=== PATIENT | female | born 1955 | race Caucasian/White ===

== ENCOUNTER 2019-07-16 12:03 | Outpatient (CLI) | payer MEDICARE, SELFPAY ==
--- NOTE | 2019-07-16 12:09 | ECHO_ITS ---
Patient Info Name: Daphney Shah Age: 64 years : 1955 Gender: Female Ht: 63 in Wt: 188 lbs BSA: 1.98 m2 HR: 60 bpm BP: 113 / 59 mmHg Technical Quality: Good Exam Date: 07/16/2019 12:39 PM Exam Location: [facility], [place] Patient Status: Outpatient Admit Date: 07/16/2019 Staff Ordering Physician: Jeferson Deng DO Structural Ironworker: Marv Vegas RDCS, RT Attending Provider: Jeferson Deng DO Referring Physician: Ish MIRANDA; Exam Type: CA echo doppler color flow Study Info Indications R06.02 - Shortness of breath Complete two-dimensional, color flow and Doppler transthoracic echocardiogram is performed. Summary 1. Left ventricular chamber dimension is normal. 2. Left ventricular systolic function is normal, estimated at 55-60%. 3. There is mildly increased left ventricular wall thickness. 4. The left ventricular diastolic function is abnormal. 5. E/e' 16 is elevated. 6. Global longitudinal strain is normal at -22.9%. 7. Left atrial chamber dimension is mildly enlarged. 8. Moderate mitral annular calcification. 9. There is trace mitral valve regurgitation. Left Ventricle E/e' 16 is elevated. Global longitudinal strain is normal at -22.9%. Left ventricular chamber dimension is normal. Left ventricular systolic function is normal, estimated at 55-60%. There is mildly increased left ventricular wall thickness. The left ventricular diastolic function is abnormal. Right Ventricle Right ventricular chamber dimension is normal. Right ventricular systolic function is normal. Left Atria Left atrial chamber dimension is mildly enlarged. Right Atria Right atrial chamber dimension is normal. Aortic Valve The aortic valve is trileaflet. There is no aortic valve stenosis. There is no aortic valve regurgitation. Pulmonic Valve There is no pulmonic regurgitation. Mitral Valve Moderate mitral annular calcification. There is no mitral valve stenosis. There is trace mitral valve regurgitation. Tricuspid Valve There is no tricuspid valve regurgitation. Pericardium/Pleural There is no pericardial effusion. Inferior Vena Cava Normal inferior vena cava with >50% collapse upon inspiration consistent with normal right atrial pressure, 5 mmHg. Aorta The aortic root size at the sinus of Valsalva is normal. Left Ventricular Outflow Tract Name Value Normal LVOT 2D LVOT Diameter 1.9 cm LVOT Doppler LVOT Peak Velocity 102 cm/s LVOT Peak Gradient 4 mmHg LVOT Mean Gradient 2 mmHg LVOT VTI 25 cm LVOT VTI/AV VTI Ratio 0.6 LVOT Stroke Volume 70 ml Pulmonic Valve Name Value Normal PV Doppler PV Peak Velocity 107 cm/s PV Peak Gradient
== END 2019-07-16 12:04 | disposition home or self-care (01) ==
LOC: CHSIMG 12:04
PROVIDERS: PCP Family Medicine; Visit Provider Internal Medicine Cardiovascular Disease
DX: R06.09 Other forms of dyspnea (principal)
CPT/HCPCS: 93306

== ENCOUNTER 2019-07-29 08:52 | Outpatient (CLI) | payer MEDICARE, SELFPAY ==
[2019-07-29 09:32] LABS: Cholesterol 220 mg/dL (0-200); HDL Direct 58 mg/dL (40-60); LDL Cholesterol Calculated 139 mg/dL (<130); Triglycerides 114 mg/dL (0-150)
== END 2019-07-29 08:53 | disposition home or self-care (01) ==
LOC: CHSLAB 08:55
PROVIDERS: PCP Family Medicine; Visit Provider Internal Medicine Cardiovascular Disease
DX: E78.5 Hyperlipidemia, unspecified (principal)
CPT/HCPCS: 36415; 80061

== ENCOUNTER 2019-09-08 12:19 | Emergency (ER) | payer MEDICARE, SELFPAY ==
--- NOTE | ~2019-09-08 | CT_ITS ---
EXAMINATION: CT facial bones wo con DATE: 09/08/2019 13:44 INDICATION: Left maxillary and frontal contusion TECHNIQUE: Computed tomography (CT) of the maxillofacial region was performed without intravenous con trast. The dose-length product was 529.67 mGy-cm. Automated exposure control and iterative reconstruc tion technique were employed. COMPARISON: None FINDINGS: MAXILLOFACIAL CT: There is a large left frontal scalp hematoma. No underlying skull fracture is identified. No acute fr acture or traumatic malalignment. Temporal mandibular joints are symmetric. No mandibular fracture. T here are multiple dental caries. There is left mastoid effusion. Paranasal sinuses within normal limi ts. No evidence for orbital blowout fracture. Lamina papyracea is intact bilaterally. Leftward nasal septal deviation. Right-sided binta bullosa. There are degenerative changes of the cervical spine. IMPRESSION: 1. No acute maxillofacial fracture. Reviewed, dictated and finalized at location A.
--- NOTE | ~2019-09-08 | CT_ITS ---
EXAMINATION: CT brain wo con DATE: 09/08/2019 13:44 INDICATION: Status post fall. Frontal abrasions. TECHNIQUE: Computed tomography (CT) of the head was performed without intravenous contrast. The dose- length product was 529.67 mGy-cm. Automated exposure control and iterative reconstruction technique w ere employed. COMPARISON: None FINDINGS: There is a large left frontal scalp hematoma. No acute intracranial hemorrhage, infarction, mass or mass effect. No ventriculomegaly or midline shift. Basilar cisterns are patent. No underlyin g depressed skull fractures. There is left mastoid effusion. IMPRESSION: 1. No acute intracranial abnormality. 2: Large left frontal scalp hematoma. No underlying skull fracture. Reviewed, dictated and finalized at location A.
[2019-09-08 12:56] VITALS: BP 107/68; PULSE 69; RESP 18; TEMP 36.7; O2SAT 98
--- NOTE | 2019-09-08 13:13 | ED.FALL ---
HPI - Fall General Chief Complaint: Fall Stated Complaint: hit left side of head Source: patient Mode of arrival: ambulatory Limitations: no limitations History of Present Illness HPI Narrative: 64-year-old tripped over a parking block falling onto her left side of her face. She had no loss of conscious, nausea or vomiting afterwards. This occurred at approximately noon. She rates the pain is 3/10 dull and aching She denies neck pain shoulder elbow hip or knee. Unknown last tetanus Related Data Home Medications Medication Instructions Recorded Confirmed citalopram 40 mg tablet 20 mg PO DAILY 07/10/19 09/08/19 famotidine 40 mg tablet 40 mg PO DAILY 07/10/19 09/08/19 Allergies Allergy/AdvReac Type Severity Reaction Status Date / Time No Known Allergies Allergy Verified 07/10/19 10:59 Review of Systems Constitutional: Comments: Has been feeling healthy Cardiovascular: Comments: no chest pain Respiratory: Comments: no shortness of breath Gastrointestinal: Gastrointestinal: Reports no additional gastrointestinal complaints Musculoskeletal: Musculoskeletal: Reports no additional musculoskeletal complaints Neurologic: Denies dizziness and Denies memory loss [facility] Past Medical History Medical History Arthritis Hx of migraine headaches Family History Family History Father Past heart attack Parkinsons disease Mother Pacemaker Social History Social History (Updated 09/09/19 @ 05:36 by Butch Painter MD) Social History: She and her are raising 5 young children. Smoking status: Former smoker Alcohol intake: never Exam Narrative: Exam Narrative: Wearing glasses. Left lenses is scratched. Const: General: no acute distress HENMT: Other: Large hematoma of left forehead with abrasion; tender. Abrasions over left zygomatic process with minor tenderness. Slight ecchymosis left proximal medial nose. No eyelid swelling. No subconjunctival hemorrhage.. Fully opens her mouth without pain. No TMJ tenderness. Upper incisors are stable. Eyes: Pupils: Equal, round and reactive pupils present EOM: EOMs intact bilaterally Other: Sees objects normally with glasses Neck: Other: No cervical paraspinal or spinous process tenderness. No pain with cervical flexion. Neuro: General: patient oriented x3 and moves all extremities Extrem: Other: No tenderness or abrasion over the left elbow wrist hip knee or ankle. Psych: Mental Status: mental status grossly normal Course Course Emergency Course: No additional symptoms Vital Signs Vital signs: Vital Signs Temperature 36.7 C 09/08/19 12:56 Pulse Rate 69 09/08/19 12:56 Respiratory Rate 18 09/08/19 12:56 Blood Pressure 107/68 09/08/19 12:56 Pulse Oximetry 98 09/08/19 12:56 Temperature 36.7 C 09/08/19 12:56 Pulse Rate 69 09/08/19 12:56 Respiratory Rate 13 09/08/19 14:48 Blood Pressure 107/68 09/08/19 12:56 Pulse Oximetry 98 09/08/19 12:56 MDM - Fall Differential Diagnosis Differential diagnosis: Likely other (fracture of facial bones/skull; intracranial hemorrhage. ) Imaging Data Radiologist's impression: CT facial bones and brain are negative except for left forehead hematoma Discharge Plan Discharge Clinical Impression: Abrasion of face, Contusion of face Patient Disposition: Home, Self-Care Condition: Stable Instructions: Head Injury (ED), Abrasion (ED) Additional Instructions: Return if worsening headache or with trouble concentrating, trouble with balance or any other abnormalities. Prescriptions: No Action famotidine 40 mg tablet 40 mg PO DAILY RF: 0 citalopram 40 mg tablet 20 mg PO DAILY RF: 0 Follow-up/Referrals: Javier Rosario MD [Primary Care Provider] - Time of Disposition: 14: Discharge Date/Time: 09/08/19 14:50
[2019-09-08] MEDS: TETANUS,DIPHTHERIA,AC PERTUSSIS ADULT 0.5 ML (ADACEL) IM (14:35)
[2019-09-08 14:48] VITALS: RESP 13
== END 2019-09-08 14:50 | disposition home or self-care (01) ==
PROVIDERS: Emergency Provider Family Medicine; PCP Family Medicine
DX: S00.81XA Abrasion of other part of head, initial encounter (principal); S00.83XA Contusion of other part of head, initial encounter; Z87.891 Personal history of nicotine dependence; W01.0XXA Fall on same level from slipping, tripping and stumbling without subsequent striking against object, initial encounter
CPT/HCPCS: 70450; 70486; 90471; 90715; 99282; 99284

== ENCOUNTER 2019-09-16 12:54 | Outpatient (CLI) | payer MEDICARE, SELFPAY ==
--- NOTE | ~2019-09-16 | XR_ITS ---
XR finger 1st LT min 2V DATE: 09/16/2019 13:23 INDICATION: First digit pain near interphalangeal joint following injury from fall last week TECHNIQUE: 3 views COMPARISON: 06/14/2008 left hand FINDINGS: There is severe osteoarthritis at the first carpometacarpal joint. There is osteoarthritis at the interphalangeal joint of the first digit. No fracture or dislocation, periosteal reaction or bone destruction is detected. IMPRESSION: No fracture or dislocation Osteoarthritic changes at the first carpometacarpal and interphalangeal joints Reviewed, dictated and finalized at location B.
== END 2019-09-16 12:55 | disposition home or self-care (01) ==
LOC: CHSIMG 12:57
PROVIDERS: PCP Family Medicine; Visit Provider Family Medicine
DX: M25.542 Pain in joints of left hand (principal)
CPT/HCPCS: 73140

== ENCOUNTER 2019-10-24 09:53 | Outpatient (CLI) | payer MEDICARE, SELFPAY ==
--- NOTE | ~2019-10-24 | MR_ITS ---
EXAMINATION: MR brain/brain stem wo/w con EXAM DATE: 10/24/2019 12:02 INDICATION: Transient change in awareness with loss of speech, missing time. TECHNIQUE: Magnetic resonance imaging (MRI) of the brain/brain stem obtained without contrast. Sagit brit T1, axial diffusion, gradient echo (T2*), T1, T2, FLAIR sequences obtained. Patient was then inj ected with 5 cc intravenous Multihance contrast. Axial and coronal postcontrast T1 weighted sequences obtained. Correlation is made to head CT 09/08/2019. FINDINGS: There are no areas of restricted diffusion to suggest acute infarction. There is no acute hemorrhage seen on the T2*, a hemosiderin sensitive sequence. No intraparenchymal brain mass lesion. There are no extra-axial collections. Flow voids are seen in the cerebral arteries on the T2-weight ed sequences consistent with their expected patency. The orbits are unremarkable. Previously seen large left frontal scalp hematoma has nearly resolved. There are no areas of abnormal enhancement on the postcontrast images. There is left mastoid effusion. IMPRESSION: Unremarkable brain. Reviewed, dictated and finalized at location A. IMPRESSION: Unremarkable brain.
[2019-10-24 10:30] LABS: Estimated Glomerular Filt Rate > 60
== END 2019-10-24 09:54 | disposition home or self-care (01) ==
LOC: CHSIMG 09:56
PROVIDERS: PCP Family Medicine; Visit Provider Family Medicine
DX: R42 Dizziness and giddiness (principal)
CPT/HCPCS: 70553; A9577

== ENCOUNTER 2020-07-12 10:02 | Outpatient (CLI) | payer MEDICARE, SELFPAY ==
[2020-07-12 10:50] LABS: Alanine Aminotransferase 12 U/L (14-59); Albumin Level 3.9 g/dL (3.4-5.0); Alkaline Phosphatase 95 U/L (46-116); Anion Gap 8 mmol/L (8-16); Aspartate Amino Transferase 24 U/L (15-37); Bilirubin,Total 0.3 mg/dL (0.00-1.00); Blood Urea Nitrogen 9 mg/dL (7-18); Calcium 9.2 mg/dL (8.5-10.1); Carbon Dioxide 30 mmol/L (21-32); Chloride 101 mmol/L (98-108); Cholesterol 191 mg/dL (0-200); Estimated Glomerular Filt Rate > 60; Glucose 117 mg/dL (70-99); HDL Direct 44 mg/dL (40-60); LDL Cholesterol Calculated 123 mg/dL (<130); Osmolality Calculated 287 mOsm/kg (285-295); Potassium 3.5 mmol/L (3.5-5.1); Sodium 139 mmol/L (136-145); Total Protein 8.2 g/dL (6.4-8.2); Triglycerides 119 mg/dL (0-150)
== END 2020-07-12 10:03 | disposition home or self-care (01) ==
LOC: CHSLAB 10:04
PROVIDERS: PCP Family Medicine; Visit Provider Internal Medicine Cardiovascular Disease
DX: E78.5 Hyperlipidemia, unspecified (principal)
CPT/HCPCS: 36415; 80053; 80061

== ENCOUNTER 2020-08-11 10:24 | Emergency (ER) | payer MEDICARE, SELFPAY ==
--- NOTE | ~2020-08-11 | XR_ITS ---
EXAMINATION: XR chest 2V EXAM DATE: 08/11/2020 11:27 INDICATION: Left mid chest pain. TECHNIQUE: Frontal and lateral projections of the chest obtained and reviewed. There is no prior bri dy for comparison. FINDINGS: The lungs are clear. There are no pleural effusions. The cardiomediastinal silhouette is within normal limits. There is no pneumothorax suspected. The bones and soft tissues are unremarkab le. There is aortic arteriosclerosis. IMPRESSION: No acute cardiopulmonary findings. Reviewed, dictated and finalized at location B. TOR EXPERT
[2020-08-11 10:31] VITALS: BP 84/62; PULSE 72; PULSE 84; RESP 18; TEMP 36.8; O2SAT 98
--- NOTE | 2020-08-11 10:35 | ECG_ITS ---
Measurements Intervals [place] Rate: 69 P: 65 MO: 128 QRS: 71 QRSD: 106 T: -90 QT: 465 QTc: 499 Interpretive Statements SINUS RHYTHM ST-T WAVE ABNORMALITY IN INF/LAT LEADS- CONSIDER ISCHEMIA BASELINE ARTIFACT- I, II, III, AVR, AVL, AVF ABNORMAL ECG Electronically Signed On 08-11-2020 11:07:48 INSURANCE COMMISSIONER by Jeferson Deng D.O.
[2020-08-11] MEDS: ASPIRIN 81 MG CHEWABLE TABLET 324 MG PO (10:51)
[2020-08-11] MEDS: SODIUM CHLORIDE 0.9% IV 1,000 ML 999 ML IV CONT (10:51)
[2020-08-11 11:15] LABS: Basophils Absolute Auto 0.09 K/mm3 (0.00-0.10); Basophils Percent Auto 1.2 % (0.0-1.0); Eosinophils Absolute Auto 0.27 K/mm3 (0.02-0.50); Eosinophils Percent Auto 3.7 % (1.0-6.0); Hematocrit 37.3 % (35.0-42.0); Hemoglobin 12.2 g/dL (11.7-13.8); Immature Granulocyte Absolute 0.02 K/mm3 (0.00-0.00); Immature Granulocyte Percent A 0.3 % (0.0-0.0); Lymphocytes Absolute Auto 1.86 K/mm3 (1.10-4.50); Lymphocytes Percent Auto 25.3 % (18.0-42.0); Mean Corpuscular HGB Conc 32.7 g/dL (32.0-36.0); Mean Corpuscular Hemoglobin 30.3 pg (27.0-31.0); Mean Corpuscular Volume 92.6 fL (78.0-102.0); Mean Platelet Volume 9.3 fl (9.2-11.8); Monocytes Percent Auto 5.4 % (2.0-11.0); Neutrophils Absolute Auto 4.7 K/mm3 (1.7-7.2); Neutrophils Percent Auto 64.1 % (50.0-70.0); Platelet Count Result 279 K/mm3 (150-420); Red Blood Count 4.03 M/mm3 (4.20-5.40); Red Cell Distribution Width 13.2 % (11.6-14.4); White Blood Count 7.3 K/mm3 (4.8-10.8)
[2020-08-11 11:29] LABS: D Dimer 0.49 mg/L (0.19-0.50); Partial Thromboplastin Time 28.3 SEC (23.90-30.70); Prothrombin Time 10.6 Seconds (9.50-12.10)
[2020-08-11 11:32] LABS: BNP 78.2 pg/mL (0-100)
[2020-08-11 11:33] LABS: Alanine Aminotransferase 15 U/L (14-59); Albumin Level 3.5 g/dL (3.4-5.0); Alkaline Phosphatase 87 U/L (46-116); Anion Gap 8 mmol/L (8-16); Aspartate Amino Transferase 18 U/L (15-37); Bilirubin,Total 0.4 mg/dL (0.00-1.00); Blood Urea Nitrogen 14 mg/dL (7-18); Calcium 8.8 mg/dL (8.5-10.1); Carbon Dioxide 28 mmol/L (21-32); Chloride 103 mmol/L (98-108); Estimated Glomerular Filt Rate > 60; Glucose 91 mg/dL (70-99); Lipase 89 U/L (73-393); Osmolality Calculated 288 mOsm/kg (285-295); Potassium 3.8 mmol/L (3.5-5.1); Sodium 139 mmol/L (136-145); Total Protein 7.9 g/dL (6.4-8.2); Troponin I 15.2 ng/L (0.00-60.4)
--- NOTE | 2020-08-11 11:39 | ED.CHESTPAIN ---
HPI - Chest Pain General Chief Complaint: Chest Pain Stated Complaint: Chest pain Time Seen by Provider: 08/11/20 10:25 Source: patient Mode of arrival: ambulatory Limitations: no limitations History of Present Illness HPI narrative: this is a 65-year-old female with a history of hyperlipidemia and tobacco abuse presents with a 2 day history of aching chest pain that is reproducible she rates it at about a 2/10 yesterday she she states that did radiate into left arm but currently there is no radiation of her pain chest pain is reproducible there is no nausea vomiting no diaphoresis no shortness of breath. Currently no fever chills no abdominal pain no dysuria. complaint: chest pain Onset (ago): day(s) Timing of current episode: episodic Prior episodes: Yes Onset: during rest Pain location: substernal Pain radiation: none Severity: mild Pain scale (0-10): 2 Quality: aching Relieving factors: nothing Exacerbating factors: nothing Related Data Home Medications Medication Instructions Recorded Confirmed citalopram 40 mg tablet 20 mg PO DAILY 07/10/19 06/27/20 famotidine 40 mg tablet 40 mg PO DAILY 07/10/19 06/27/20 Allergies Allergy/AdvReac Type Severity Reaction Status Date / Time No Known Allergies Allergy Verified 12/21/19 14:43 Review of Systems Review of Systems: All systems reviewed & are unremarkable except as noted in HPI and below PMFSH Past Medical History Medical History (Updated 08/11/20 @ 11:53 by Karri Bustillo MD) Arthritis Hx of migraine headaches Family History Family History Father Past heart attack Parkinsons disease Mother Pacemaker Social History Social History Social History: She and her are raising 5 young children. Smoking status: Current every day smoker Alcohol intake: never Exam Const: General: no acute distress and alert Orientation/consciousness: patient oriented x3 HENMT: Head: normal to inspection Eyes: Conjunctivae: conjunctivae normal Pupils: Equal, round and reactive pupils present EOM: EOMs intact bilaterally Direct Ophthalmoscopy: no photophobia Neck: Neck: normal visual inspection Chest: Chest palpation & inspection: normal inspection of the chest Cardio: Rate: regular rate Rhythm: regular rhythm GI: GI Palp: Yes Soft to palpation Percussion: Yes normal to percussion : General: Yes no CVA tenderness Urinary Catheter: Urinary Catheter: patent and draining Back/Spine/Pelvis: Back: no CVA tenderness Neuro: General: patient oriented x3, moves all extremities and no meningeal signs Extrem: General: normal to inspection and no pedal edema Psych: Appearance: grossly normal Mental Status: mental status grossly normal Course Course Emergency Course: Patient currently without chest pain she rates her pain currently at a 0/10 patient appears and feels comfortable and wants to go. Initial blood pressure 84/60 to her replete blood pressure is 97/70, patient wants to go home and expressed to her that she should be admitted under observation but she reiterates that she has 5 children that she takes care of at and if the patient is willing to sign out AMA patient can go go with close follow-up her primary care physician / crop adjuster. Vital Signs Vital signs: Vital Signs Temperature 36.8 C 08/11/20 10:31 Pulse Rate 72 08/11/20 10:31 Respiratory Rate 18 08/11/20 10:31 Blood Pressure 84/62 L 08/11/20 10:31 Pulse Oximetry 98 08/11/20 10:31 Temperature 36.8 C 08/11/20 10:31 Pulse Rate 84 08/11/20 10:31 Respiratory Rate 18 08/11/20 10:31 Blood Pressure 84/62 L 08/11/20 10:31 Pulse Oximetry 98 08/11/20 10:31 MDM - Chest Pain Lab Data Result diagrams: 08/11/20 11:08 08/11/20 11:08 Labs: Lab Results 08/11/20 08/11/20 08/11/20 Range/Units 1
[2020-08-11 11:50] VITALS: BP 85/60
[2020-08-11 11:59] VITALS: BP 97/70
== END 2020-08-11 12:00 | disposition left against medical advice (07) ==
PROVIDERS: Emergency Provider Emergency Medicine; PCP Family Medicine
DX: I95.9 Hypotension, unspecified (principal); F17.200 Nicotine dependence, unspecified, uncomplicated; R07.9 Chest pain, unspecified
CPT/HCPCS: 36415; 71046; 80053; 83690; 83880; 84484; 85025; 85380; 85610; 85730; 93005; 96360; 99283; 99284; A9270; J7030

== ENCOUNTER 2020-11-23 13:29 | Outpatient (CLI) | payer MEDICARE, SELFPAY ==
[2020-11-23 13:49] LABS: Basophils Absolute Auto 0.09 K/mm3 (0.00-0.10); Eosinophils Absolute Auto 0.65 K/mm3 (0.02-0.50); Hematocrit 39.6 % (35.0-42.0); Hemoglobin 12.7 g/dL (11.7-13.8); Immature Granulocyte Absolute 0.03 K/mm3 (0.00-0.00); Immature Granulocyte Percent A 0.3 % (0.0-0.0); Lymphocytes Absolute Auto 2.33 K/mm3 (1.10-4.50); Lymphocytes Percent Auto 25.2 % (18.0-42.0); Mean Corpuscular HGB Conc 32.1 g/dL (32.0-36.0); Mean Corpuscular Hemoglobin 29.3 pg (27.0-31.0); Mean Corpuscular Volume 91.2 fL (78.0-102.0); Mean Platelet Volume 9.2 fl (9.2-11.8); Monocytes Absolute Auto 0.54 K/mm3 (0.10-0.90); Monocytes Percent Auto 5.8 % (2.0-11.0); Neutrophils Absolute Auto 5.6 K/mm3 (1.7-7.2); Neutrophils Percent Auto 60.7 % (50.0-70.0); Platelet Count Result 305 K/mm3 (150-420); Red Blood Count 4.34 M/mm3 (4.20-5.40); Red Cell Distribution Width 13.4 % (11.6-14.4); White Blood Count 9.3 K/mm3 (4.8-10.8)
[2020-11-23 14:15] LABS: Alanine Aminotransferase 16 U/L (14-59); Albumin Level 3.5 g/dL (3.4-5.0); Alkaline Phosphatase 116 U/L (46-116); Anion Gap 9 mmol/L (8-16); Aspartate Amino Transferase 20 U/L (15-37); Bilirubin,Total 0.3 mg/dL (0.00-1.00); Blood Urea Nitrogen 16 mg/dL (7-18); Calcium 8.9 mg/dL (8.5-10.1); Carbon Dioxide 30 mmol/L (21-32); Chloride 99 mmol/L (98-108); Creatine Kinase 139 U/L (26-192); Estimated Glomerular Filt Rate 60; Glucose 96 mg/dL (70-99); Osmolality Calculated 287 mOsm/kg (285-295); Potassium 4.1 mmol/L (3.5-5.1); Sodium 138 mmol/L (136-145); Thyroid Stimulating Hormone 1.39 uIU/mL (0.36-3.74); Total Protein 8.5 g/dL (6.4-8.2)
== END 2020-11-23 13:30 | disposition home or self-care (01) ==
LOC: CHSLAB 13:31
PROVIDERS: PCP Family Medicine; Visit Provider Family Medicine
DX: R42 Dizziness and giddiness (principal); R94.31 Abnormal electrocardiogram [ECG] [EKG]; F41.9 Anxiety disorder, unspecified
CPT/HCPCS: 36415; 80053; 82550; 82553; 84443; 84484; 85025

== ENCOUNTER 2020-11-24 19:57 | Emergency (ER) | payer MEDICARE, SELFPAY ==
[2020-11-24 19:57] VITALS: BP 90/74; PULSE 79; RESP 18; TEMP 36.7; O2SAT 95
--- NOTE | 2020-11-24 20:07 | ECG_ITS ---
Measurements Intervals [place] Rate: 72 P: 44 [place]: 124 QRS: 63 QRSD: 106 T: 249 QT: 445 QTc: 490 Interpretive Statements SINUS RHYTHM ST-T WAVE ABNORMALITY IN INF/LAT LEADS- CONSIDER ISCHEMIA BASELINE ARTIFACT- I, II, III, AVR, AVL, AVF, V4 ABNORMAL ECG Electronically Signed On 11-25-2020 6:20:58 CDT by Jeferson Deng D.O.
[2020-11-24] MEDS: SODIUM CHLORIDE 0.9% IV 1,000 ML 999 ML IV CONT (20:19)
[2020-11-24 20:22] LABS: Basophils Absolute Auto 0.09 K/mm3 (0.00-0.10); Eosinophils Absolute Auto 0.59 K/mm3 (0.02-0.50); Eosinophils Percent Auto 6.7 % (1.0-6.0); Hematocrit 40.1 % (35.0-42.0); Hemoglobin 13.1 g/dL (11.7-13.8); Immature Granulocyte Absolute 0.03 K/mm3 (0.00-0.00); Immature Granulocyte Percent A 0.3 % (0.0-0.0); Lymphocytes Absolute Auto 1.89 K/mm3 (1.10-4.50); Lymphocytes Percent Auto 21.6 % (18.0-42.0); Mean Corpuscular HGB Conc 32.7 g/dL (32.0-36.0); Mean Corpuscular Hemoglobin 29.6 pg (27.0-31.0); Mean Corpuscular Volume 90.7 fL (78.0-102.0); Mean Platelet Volume 9.4 fl (9.2-11.8); Monocytes Absolute Auto 0.51 K/mm3 (0.10-0.90); Monocytes Percent Auto 5.8 % (2.0-11.0); Neutrophils Absolute Auto 5.6 K/mm3 (1.7-7.2); Neutrophils Percent Auto 64.6 % (50.0-70.0); Platelet Count Result 281 K/mm3 (150-420); Red Blood Count 4.42 M/mm3 (4.20-5.40); Red Cell Distribution Width 13.5 % (11.6-14.4); White Blood Count 8.8 K/mm3 (4.8-10.8)
[2020-11-24 20:31] VITALS: BP 89/62; PULSE 72; RESP 20; O2SAT 97
[2020-11-24 20:35] LABS: Alanine Aminotransferase 19 U/L (14-59); Albumin Level 3.5 g/dL (3.4-5.0); Alkaline Phosphatase 112 U/L (46-116); Anion Gap 11 mmol/L (8-16); Aspartate Amino Transferase 17 U/L (15-37); Bilirubin,Total 0.4 mg/dL (0.00-1.00); Blood Urea Nitrogen 17 mg/dL (7-18); Calcium 9.2 mg/dL (8.5-10.1); Carbon Dioxide 27 mmol/L (21-32); Chloride 100 mmol/L (98-108); Estimated CRCL calculation 47 ml/min; Estimated Glomerular Filt Rate 55; Glucose 104 mg/dL (70-99); Osmolality Calculated 287 mOsm/kg (285-295); Potassium 3.6 mmol/L (3.5-5.1); Sodium 138 mmol/L (136-145); Total Protein 8.3 g/dL (6.4-8.2)
[2020-11-24 20:36] VITALS: BP 96/69; PULSE 77
[2020-11-24 20:39] VITALS: BP 92/67; PULSE 75
[2020-11-24 20:40] LABS: Lactic Acid Reflex 0.5 mmol/L (0.4-2.0)
[2020-11-24 20:45] VITALS: BP 101/69; PULSE 76
[2020-11-24 20:50] LABS: Appearance Urine Clear (Clear); Bilirubin Urine Negative (Negative); Glucose Urine UA Negative (Negative); Ketones Urine Negative (Negative); Leukocyte Esterase Ur 2+ (Negative); Nitrate Urine Negative (Negative); Protein Urine Negative (Negative); Specific Grav Ur 1.015 (1.010-1.020); Urobilinogen Urine 0.2 mg/dL (0.2-1.0); pH Urine 6.5 (5.0-8.0)
[2020-11-24 20:54] LABS: Color Urine Light Yellow (Yellow)
[2020-11-24 20:55] LABS: Add Urine Microscopic? YES; Bacteria Urine Trace /hpf; Blood Urine Trace-lysed (Negative); RBC Urine 0-2 /hpf (0-2); Squamous Epithelial Cell Urine Few /hpf (Few)
[2020-11-24 21:03] LABS: Magnesium 1.9 mg/dL (1.8-2.4); NT Pro B Type Natriuretic Pept 421 pg/mL (0-125); Troponin I 11.6 ng/L (0.00-60.4)
--- NOTE | 2020-11-24 21:09 | ED.DIZZY ---
HPI - Dizziness General Chief Complaint: Syncope Stated Complaint: AMB Source: patient, family and EMS Mode of arrival: ambulatory Limitations: no limitations History of Present Illness HPI Narrative: this is a 65-year-old female presents via EMS with some lightheadedness while cooking this afternoon and not using the air conditioner. Family concerned and called EMS the patient was some feeling well and according to her back to her normal self with no complaints no dizziness she did not faint no nausea vomiting no abdominal pain no chest pain no shortness of breath no fever chills. The patient saw her primary care physician today and is scheduled for an echocardiogram and a duplex ultrasound of her upper right carotid. MD elicited complaint: lightheadedness Onset (ago): hour(s) Timing: sudden onset Severity: mild Description: sense of movement and lightheadedness Context: other ( Was frying food and did have her air conditioner on today) History of similar symptoms: No Exacerbating factors: nothing Relieving factors: nothing Related Data Home Medications Medication Instructions Recorded Confirmed No Home Medications 11/24/20 11/24/20 Allergies Allergy/AdvReac Type Severity Reaction Status Date / Time No Known Allergies Allergy Verified 12/21/19 14:43 Review of Systems Review of Systems: All systems reviewed & are unremarkable except as noted in HPI and below PMFSH Past Medical History Medical History (Updated 11/24/20 @ 21:14 by Karri Bustillo MD) Arthritis Hx of migraine headaches Family History Family History Father Past heart attack Parkinsons disease Mother Pacemaker Social History Social History Social History: She and her are raising 5 young children. Smoking status: Current every day smoker Alcohol intake: never Exam Const: General: no acute distress and alert Orientation/consciousness: patient oriented x3 HENMT: Head: normal to inspection Eyes: Conjunctivae: conjunctivae normal Pupils: Equal, round and reactive pupils present Neck: Neck: normal visual inspection Chest: Chest palpation & inspection: normal inspection of the chest Resp: Effort & Inspection: normal respiratory effort Cardio: Rate: regular rate Rhythm: regular rhythm GI: GI Palp: Yes Soft to palpation Urinary Catheter: Urinary Catheter: patent and draining Back/Spine/Pelvis: Back: no CVA tenderness Skin: General skin exam: normal color Rashes: no rashes Neuro: General: patient oriented x3 and moves all extremities Extrem: General: normal to inspection and no pedal edema Psych: Appearance: grossly normal Mental Status: mental status grossly normal Affect: normal affect Course Course Emergency Course: 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 Currently her blood pressure is 110/70, labs reviewed with patient as well as EKG and patient is stable to go home with some her follow-up with echocardiogram and ultrasound of her right carotid artery. Vital Signs Vital signs: Vital Signs Temperature 36.7 C 11/24/20 19:57 Pulse Rate 79 11/24/20 19:57 Respiratory Rate 18 11/24/20 19:57 Blood Pressure 90/74 L 11/24/20 19:57 Pulse Oximetry 95 11/24/20 19:57 Temperature 36.7 C 11/24/20 19:57 Pulse Rate 76 11/24/20 20:45 Respiratory Rate 20 11/24/20 20:31 Blood Pressure 101/69 11/24/20 20:45 Pulse Oximetry 97 11/24/20 20:31 MDM - Dizziness Lab Data Result diagrams: 11/24/20 20:16 11/24/20 20:16 Labs: Lab Results 11/24/20 11/24/20 11/24/20 Range/Units 20:16 20:16
[2020-11-24] MEDS: SODIUM CHLORIDE 0.9% IV 500 ML 999 ML IV CONT (21:10)
[2020-11-24 21:11] VITALS: BP 101/70; PULSE 74; RESP 20; TEMP 37.1; O2SAT 98
== END 2020-11-24 21:38 | disposition home or self-care (01) ==
PROVIDERS: Emergency Provider Emergency Medicine; PCP Family Medicine
DX: E86.0 Dehydration (principal)
CPT/HCPCS: 36415; 80053; 81001; 83605; 83735; 83880; 84484; 85025; 93005; 96360; 99283; 99284; J7030; J7040

== ENCOUNTER 2020-11-29 12:32 | Outpatient (CLI) | payer MEDICARE, SELFPAY ==
--- NOTE | ~2020-11-29 | US_ITS ---
EXAMINATION: US carotid duplex BI DATE: 11/29/2020 15:04 INDICATION: Carotid atherosclerosis. Abnormal EKG. Dizziness. TECHNIQUE: Grayscale, color Doppler, and pulsed Doppler images of the cervical carotid arteries were obtained. The degree of vessel stenosis is placed in one of the following categories: normal, <50%, 5 0-69%, >=70% but less than near-occlusion, near-occlusion, or total occlusion. Note that percent sten osis relative to normal distal artery lumen diameter is indirectly measured from velocity measurement s as described by Reji, et al. Radiology 2003; 229:340-346. COMPARISON: None. FINDINGS: RIGHT: The right common carotid artery (CCA) peak systolic velocity (PSV) is 65 cm/s. The right internal car otid artery (ICA) PSV is 67 cm/s. The right ICA end-diastolic velocity (EDV) is 16 cm/s. The right IC A/CCA PSV ratio is 1.0. Grayscale and color Doppler images yield an estimate of <50% diameter reducti on from plaque in the ICA. The external carotid artery (ECA) PSV is 85 cm/s. There is antegrade flow in the right vertebral artery. There are delayed systolic upstrokes in the right common carotid and r ight vertebral arteries suggesting a more proximal high-grade stenosis with large amount of calcite a therosclerotic plaque seen at the origin of the right innominate artery on chest CT dated 05/12/2019. LEFT: The left CCA PSV is 42 cm/s with brisk systolic upstroke but high resistance waveform. The left ICA P SV is 38 cm/s with delayed systolic upstrokes. The left ICA EDV is 14 cm/s. The left ICA/CCA PSV rati o is 0.9. There is dense shadowing calcific plaque at the left carotid bulb which appears to fill the majority of the lumen on maxillofacial CT dated 09/08/2019. Grayscale and color Doppler images yield would be most consistent with a near occlusion stenosis due to plaque plaque in the ICA. The ECA PSV is 15 cm/s. There is antegrade flow in the left vertebral artery with delayed systolic upstrokes and with large amount of calcified atherosclerotic plaque at the more proximal left subclavian artery. IMPRESSION: 1. <50% stenosis in the right internal carotid artery. 2. Suggestion of high-grade likely near occlusion stenosis at the left carotid bulb. 3. Delayed systolic upstrokes in the right common carotid artery and bilateral vertebral arteries whi ch may be due to appear to be high-grade stenoses resulting from a large amount of calcified atherosc lerotic plaque at the origin of the great vessels. Could consider carotid CT angiogram for more defin itive determination. Reviewed, dictated and finalized at location A. IMPRESSION: 1. <50% stenosis in the right internal carotid artery. 2. Suggestion of high-grade likely near occlusion stenosis at the left carotid bulb. 3. Delayed systolic upstrokes in the right common carotid artery and bilateral vertebral arteries which may be due to appear to be high-grade stenoses resulti ng from a large amount of calcified atherosclerotic plaque at the origin of the great vessels. Could consider carotid CT angiogram for more definitive determi nation.
--- NOTE | 2020-11-29 12:44 | ECHO_ITS ---
Patient Info Name: Daphney Shah Age: 65 years : 1955 Gender: Female Ht: 63 in Wt: 165 lbs BSA: 1.85 m2 HR: 68 bpm BP: 101 / 68 mmHg Heart Rhythm: Sinus Rhythm Technical Quality: Good Exam Date: 11/29/2020 1:46 PM Exam Location: [facility] Patient Status: Outpatient Admit Date: 11/29/2020 Staff Ordering Physician: Javier Rosario MD Citizen Participation Specialist: Minal Muñoz RDCS Attending Provider: Javier Rosario MD Referring Physician: Marlene BEJARANO; Exam Type: CA echo doppler color flow Study Info Indications R94.31 - Abnormal electrocardiogram ECG EKG R42 - Dizziness and giddiness Complete two-dimensional, color flow and Doppler transthoracic echocardiogram is performed. Strain analysis performed. History/Risk Factors Hypertension: No Dyslipidemia: Yes Congenital Heart Disease (CHD): No Peripheral Arterial Disease (PAD): No Myocardial Infarction (WA): No Chronic Lung Disease: No Obesity: Yes Renal Disease: No Coronary Artery Disease (CAD) No Congestive Heart Failure (CHF): No Cardiomyopathy/LV Systolic Dysfunction: No Date of Last Tobacco Use: 11/29/2020 Diabetes Mellitus: No COPD: No Tobacco Use: Current - Every Day If Any Current, Tobacco Type: Cigarettes If Current - Every Day \T\ Cigarettes, Amount: Heavy Tobacco Use (>=10/day) Cerebrovascular Disease: No Family History: Diabetes Mellitus Deep Vein Thrombosis (DVT): None Dialysis: None Frailty Scale (CSHA): 4: Vulnerable Cardiac Arrest: No Summary 1. Complete two-dimensional, color flow and Doppler transthoracic echocardiogram is performed. 2. Left ventricular chamber dimension is normal. 3. Left ventricular systolic function is normal, estimated at 60-65%. 4. There is mildly increased left ventricular wall thickness. 5. The left ventricular diastolic function is grade I diastolic dysfunction. 6. E/e' 19 is elevated. 7. Global longitudinal strain is normal at -17.4%. 8. Left atrial chamber dimension is mildly enlarged. 9. The mitral valve has moderately calcified annulus. 10. There is mild mitral valve regurgitation. Recommendations * Smoking cessation counseling is recommended for this patient. Left Ventricle E/e' 19 is elevated. Global longitudinal strain is normal at -17.4%. Left ventricular chamber dimension is normal. Left ventricular systolic function is normal, estimated at 60-65%. There is mildly increased left ventricular wall thickness. The left ventricular diastolic function is grade I diastolic dysfunction. Right Ventricle Right ventricular systolic function is normal and with normal TAPSE 2.6 cm.. Right ventricular chamber dimension is normal. Left Atria Left atrial chamber dimension is mildly enlarged. Right Atria Right atrial chamber dimension is normal. Aortic Valve The aortic valve is trileaflet. There is no aortic valve stenosis. There is no aortic valve regurgitation. Pulmonic Valve There is no pulmonic regurgitation. Mitral Valve The mitral valve has moderately calcified annulus. There is no mitral valve stenosis. There is mild mitral valve regurgitation. Tricuspid Valve There is no tricuspid valve regurgitation. Pericardium/Pleural There is no pericardial effusion. Inferior Vena Cava Normal inferior vena cava with >50% collapse upon inspiration consistent with normal right atrial pressure, 5 mmHg. Aorta The
== END 2020-11-29 12:33 | disposition home or self-care (01) ==
LOC: CHSIMG 12:33
PROVIDERS: PCP Family Medicine; Visit Provider Family Medicine
DX: R09.89 Other specified symptoms and signs involving the circulatory and respiratory systems (principal); R42 Dizziness and giddiness; R94.31 Abnormal electrocardiogram [ECG] [EKG]
CPT/HCPCS: 93306; 93880

== ENCOUNTER 2020-12-01 12:38 | Outpatient (CLI) | payer MEDICARE, SELFPAY ==
--- NOTE | ~2020-12-01 | XR_ITS ---
XR lumbar spine 2-3V 12/01/2020 13:19 Indication: Spinal stenosis. Claudication. Procedure: 4 views of the lumbar spine Comparison: No prior studies for comparison. Findings: Vertebral body heights are maintained. Mild disc narrowing at L4-5 with grade 1 degenerativ e spondylolisthesis at this level. There is mild lower lumbar facet hypertrophy. There is atheroscler osis of the aorta. No acute fracture or traumatic malalignment. There is dextroscoliosis centered at L3. Sacral foramen are symmetric. There is atherosclerosis. Impression: 1: Mild-moderate lumbar spondylosis with grade 1 spondylolisthesis at L4-5. Reviewed, dictated and finalized at location A. Impression: 1: Mild-moderate lumbar spondylosis with grade 1 spondylolisthesis at L4-5.
--- NOTE | 2021-01-02 09:53 | P.PCNHOL_ITS ---
Holter/Event Monitor Holter/Event Monitor Date of procedure: 12/01/20 Holter/Event Procedure: Event Monitor Indications: Syncope Conclusion: 1. 11 days event monitor between 12/01/20-12/30/20. There are 29 available transmissions for analysis. 2. Underlying rhythm is sinus rhythm. HR range 53-120 bpm; average HR 79 bpm. 3. There are occasional premature supraventricular complexes with total burden of <1%. No supraventricular tachycardia. 4. There are occasional premature ventricular complexes with total burden of 1%. No ventricular tachycardia. 5. No significant pauses greater than 2 seconds. 6. Patient reports 13 episodes of symptoms of lightheadedness, dizziness, chest pain and symptom other than listed which demonstrate sinus rhythm, HR range 76- 95 bpm and one PAC.
== END 2020-12-01 12:39 | disposition home or self-care (01) ==
PROVIDERS: PCP Family Medicine; Visit Provider Family Medicine
DX: M48.062 Spinal stenosis, lumbar region with neurogenic claudication (principal); M47.816 Spondylosis without myelopathy or radiculopathy, lumbar region; M43.16 Spondylolisthesis, lumbar region
CPT/HCPCS: 72100; 93272

== ENCOUNTER 2020-12-02 08:03 | Outpatient (CLI) | payer MEDICARE, SELFPAY ==
--- NOTE | ~2020-12-02 | CT_ITS ---
EXAMINATION: CTA brain carotid EXAM DATE: 12/02/2020 08:58 INDICATION: Occlusion and stenosis of left carotid artery. TECHNIQUE: Noncontrast head CT. Spiral CTA of the carotid arteries was performed with intravenous i njection 100 cc of Omnipaque 350. Axial, coronal, sagittal reformatted images reviewed. Additional r eformatted images created on dedicated 3-D workstation. NASCET comparable standard used to assess th e degree of arterial stenosis. Spiral CT angiogram cerebral arteries performed with the same intrave nous injection of contrast. Source images of the brain CTA transferred to dedicated workstation for 3 -D rotational image creation. Coronal, sagittal maximum intensity pixel images also reviewed. The d ose-length product (DLP) for this examination was 1559.57 mGy-cm. The exposure was tailored accordi ng to patient size, and iterative reconstruction (ASIR) was used as additional dose reduction techniq ue. There is prior head CT from 09/08/2019 for comparison. Correlation made with carotid ultrasound 11/29/2020 FINDINGS: There is significant arterial sclerosis at the origins of the brachiocephalic, left common carotid and left subclavian arteries, with completely occluded left subclavian origin. Please note th at left vertebral antegrade flow was demonstrated on ultrasound last month, did not have appearance o f subclavian steal syndrome, although this could have changed. Arteriosclerosis of the brachiocephalic origin causing 60% stenosis using brachiocephalic distal to t his as reference. Dense plaque at the origin of the right common carotid artery, also 60% stenosis us ing the distal common carotid artery as reference. Moderate amount of carotid bulb arteriosclerosis a ccommodated by its natural dilation, 0% stenosis. Left common carotid artery is patent at its origin for a few centimeters, and then appears completely occluded. There is severe arterial sclerosis at the bifurcation with reconstitution of the internal carotid artery probably through collateralization from the external carotid artery. Carotid siphons are widely patent. Vertebral arteries are similar in size. Left P1 segment is not angelica ntified. There is right-sided posterior communicating artery dominant posterior cerebral artery. T here is no carotid or vertebral basilar arterial dissection or fibromuscular dysplasia. There are no cerebral artery aneurysms. There is symmetric cerebral artery arborization. The sagittal, transverse and sigmoid sinuses enhance normally, no venous sinus thrombosis. Internal cerebral veins also enhanc e normally. Small old left frontal lobe infarction. There is no acute intraparenchymal hemorrhage. No evidence of intraparenchymal brain mass lesion. No evidence of acute infarction. There is mild periventricula r and subcortical hypodensity, nonspecific but probably related to small vessel ischemic disease. T here is mild prominence of the sulci and ventricles related to cerebral atrophy. There is no mass effect or midline shift. There is no obstructive hydrocephalus suspected. There are no extra-axial c ollections. Incidental Findings: There is moderate disc disease C5-6 and 6-7. Moderate right facet arthropathy C3 -4 and 4-5, and on the left at C2-3. IMPRESSION: 1. Significant scattered arterial sclerosis with occluded left common carotid artery, ICA likely rec onstituted through ECA collateralization. 2. Occluded left subclavian artery origin, could be supplied by left vertebral although normal verte bral flow direction was demonstrated on ultrasound last month. 3. Tandem brachiocephalic and right common carotid artery stenoses of 60%. This likely causing the p arvus tardus Doppler waveforms described on ultrasound. 4. Right carotid bulb arterial sclerosis with 0% stenosis. 5. Small old left frontal lobe infarction. 6. Mild senescent intracranial changes.
== END 2020-12-02 08:04 | disposition home or self-care (01) ==
LOC: CHSIMG 08:04
PROVIDERS: PCP Family Medicine; Visit Provider Family Medicine
DX: I65.22 Occlusion and stenosis of left carotid artery (principal)
CPT/HCPCS: 70496; 70498; Q9967

== ENCOUNTER 2020-12-03 09:31 | Outpatient (CLI) | payer MEDICARE, SELFPAY ==
--- NOTE | ~2020-12-03 | MR_ITS ---
EXAMINATION: MR lumbar spine wo con DATE: 12/05/2020 10:21 CDT INDICATION: Bilateral stenosis. TECHNIQUE: Magnetic resonance imaging (MRI) of the lumbar spine was performed without intravenous con trast. Sequences included sagittal T2-weighted FSE, sagittal T2-weighted FS FSE, sagittal T1-weighted FSE, and axial T2-weighted FSE. COMPARISON: Lumbar spine series dated 12/01/2020 FINDINGS: There is mild disc narrowing with loss of disc signal at L1-2, L2-3, L3-4 and L4-5. There i s grade 1 degenerative spondylolisthesis at L4-5 secondary to facet hypertrophy. There is a right tiago ed perineural cyst measuring 1 cm at S2. The following disc levels are specifically discussed: T12-L1: The disc does not extend beyond the endplate margin. There is mild facet joint osteoarthritis . There is no neural foraminal stenosis. There is no central canal stenosis. L1-L2: The disc does not extend beyond the endplate margin. There is mild facet joint osteoarthritis. There is no neural foraminal stenosis. There is no central canal stenosis. L2-L3: The disc does not extend beyond the endplate margin. There is mild facet joint osteoarthritis. There is no neural foraminal stenosis. There is no central canal stenosis. L3-L4: The disc does not extend beyond the endplate margin. There is mild facet joint osteoarthritis. There is no neural foraminal stenosis. There is no central canal stenosis. L4-L5: The disc does not extend beyond the endplate margin. There is moderate facet joint osteoarthri tis. There is no neural foraminal stenosis. There is no central canal stenosis. L5-S1: The disc does not extend beyond the endplate margin. There is moderate facet joint osteoarthri tis. There is no neural foraminal stenosis. There is no central canal stenosis. IMPRESSION: 1. Mild-moderate multilevel facet degenerative change without significant associated spinal stenosis. There is grade 1 degenerative spondylolisthesis at L4-5. Reviewed, dictated and finalized at location B. IMPRESSION: 1. Mild-moderate multilevel facet degenerative change without significant assoc iated spinal stenosis. There is grade 1 degenerative spondylolisthesis at L4-5.
== END 2020-12-03 09:32 | disposition home or self-care (01) ==
LOC: CHSIMG 09:32
PROVIDERS: PCP Family Medicine; Visit Provider Family Medicine
DX: M48.061 Spinal stenosis, lumbar region without neurogenic claudication (principal)
CPT/HCPCS: 72148

== ENCOUNTER 2021-01-04 10:41 | Outpatient (RCR) | payer MEDICARE, SELFPAY ==
--- NOTE | 2021-01-05 13:54 | PTOPEVAL ---
Thank you for referring Daphney Shah to [facility].? The patient is scheduled to be seen for therapy? _3___x/week for 12 visits. Please review, sign, date and return this plan of care VASILIY. I agree with and certify that the following plan of care is medically necessary. Referring Physician Date Admitting Provider: Attending Provider: Javier Rosario MD Referring Provider: *PT Outpatient Evaluation Start: 01/04/21 11:04 Freq: Status: Active Protocol: Document 01/04/21 11:04 [facility] (Rec: 01/04/21 11:31 [facility] [id number]) Therapy Assessment Status Assessment Status Assessment Status Evaluation Outpatient Past Medical History Gastrointestinal History Hx Gastroesophageal Reflux Disease Yes Reproductive History Hx Post Menopausal Yes Psychosocial History Hx Anxiety Yes Evaluation Information Problem Diagnosis back pain Onset 12/05/20 Subjective Information Pt. reports she has had a long Query Text:As Reported By Patient/ hx of back pain. She notes Family pain has increased recently. She describes pain across the low back and into the hips. She states that the pain is worsened with standing and walking. She reports she can only walk for about 5 minutes before having to sit down. she reports that pain will disrupt her sleep and she wakes frequently. She states her goal is to decrease her back pain. Prior Level of Function Activity Level (Last 3 Months) Occupation retired Hand Dominance Right Activity of Daily Living Ability Independent Indoor/Home Mobility Independent Community Mobility Independent Stairs Ability Independent Functional Cognition (Planning, Shopping Independent , Taking Medications) Cooking Yes Cleaning Yes Laundry Yes Shopping Yes Driving Yes Comments Additional Prior Level of Function Pt. lives with her , Comments who is very sick and needs help with his care. She suffered a recent stroke leaving her left hand weak. Pain Assessment Pain Scale Pain Scale Used Numeric (1 - 10) Self Report Pain Assessment Lower Back Reported Pain Level
--- NOTE | 2021-02-14 06:42 | PCPTNOTE ---
Mrs. Shah attended a total of 6 treatment sessions from 01/03/21 to 01/18/21. She has failed to contact the clinic for follow up and will be discharged from our care. Refer to the pt. last Rx note for discharge status. Karri Owens, MPT
== END 2021-01-18 09:39 | disposition home or self-care (01) ==
LOC: CHSPT 10:41
PROVIDERS: PCP Family Medicine; Visit Provider Family Medicine
DX: M48.062 Spinal stenosis, lumbar region with neurogenic claudication (principal)
CPT/HCPCS: 97014; 97110; 97161; G0283

== ENCOUNTER 2021-01-21 09:25 | Outpatient (CLI) | payer MEDICARE, SELFPAY ==
--- NOTE | ~2021-01-21 | MR_ITS ---
EXAMINATION: MR brain/brain stem wo/w con DATE: 01/21/2021 11:04 INDICATION: Symptoms and signs involving the musculoskeletal system. Stroke. TECHNIQUE: Magnetic resonance imaging (MRI) of the brain and brainstem was performed without intraven ous contrast because IV access could not be obtained. Sequences included sagittal and axial T1-weight ed FSE, axial diffusion-weighted FS EPI, axial T2*-weighted GRE, axial T2-weighted FLAIR Propeller, a nd axial T2-weighted Propeller. Apparent diffusion coefficient (ADC) maps were created. COMPARISON: Brain MRI 10/24/2019, head CT 12/02/2020 FINDINGS: There are old infarcts in the bilateral frontoparietal regions. There are scattered areas o f nonspecific increased T2-weighted signal intensity in the cerebral white matter. There is no intrac ranial hemorrhage, acute infarction, or abnormal intracranial mass lesion. The ventricles are normal in size. The paranasal sinuses are clear. There is a left mastoid effusion. The orbits are normal. IMPRESSION: 1. Old infarcts in the bilateral frontoparietal regions, new from 10/24/19. 2. Mild nonspecific cerebral white matter disease, which likely represents chronic small vessel ische nikki disease, new from 10/24/19. Reviewed, dictated and finalized at location A. IMPRESSION: 1. Old infarcts in the bilateral frontoparietal regions, new from 10/24/19. 2. 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
[2021-01-21 09:50] LABS: Estimated Glomerular Filt Rate > 60
== END 2021-01-21 09:26 | disposition home or self-care (01) ==
LOC: CHSIMG 09:27
PROVIDERS: PCP Family Medicine; Visit Provider Family Medicine
DX: R29.898 Other symptoms and signs involving the musculoskeletal system (principal)
CPT/HCPCS: 70553

== ENCOUNTER 2021-06-27 08:24 | Outpatient (CLI) | payer MEDICARE, SELFPAY ==
[2021-06-27 09:40] LABS: Alanine Aminotransferase 26 U/L (14-59); Albumin Level 3.9 g/dL (3.4-5.0); Alkaline Phosphatase 118 U/L (46-116); Anion Gap 12 mmol/L (8-16); Aspartate Amino Transferase 22 U/L (15-37); Bilirubin,Total 0.4 mg/dL (0.00-1.00); Blood Urea Nitrogen 16 mg/dL (7-18); Calcium 9.4 mg/dL (8.5-10.1); Carbon Dioxide 29 mmol/L (21-32); Chloride 100 mmol/L (98-108); Estimated Glomerular Filt Rate > 60; Glucose 91 mg/dL (70-99); Osmolality Calculated 293 mOsm/kg (285-295); Potassium 4.3 mmol/L (3.5-5.1); Sodium 141 mmol/L (136-145); Total Protein 8.5 g/dL (6.4-8.2)
== END 2021-06-27 08:25 | disposition home or self-care (01) ==
LOC: CHSLAB 08:26
PROVIDERS: PCP Family Medicine; Visit Provider Internal Medicine Cardiovascular Disease
DX: E78.5 Hyperlipidemia, unspecified (principal)
CPT/HCPCS: 36415; 80053

== ENCOUNTER 2021-09-11 09:53 | Outpatient (RCR) | payer MEDICARE, SELFPAY ==
--- NOTE | 2021-09-11 11:00 | PCPTNOTE ---
09/11/21 - no plan of care needed at this time as patient is unaware if she will continue due to having to pay out of network prices for therapy.
--- NOTE | 2021-09-11 11:06 | PTOPEVAL ---
Thank you for referring Daphney Shah to [facility].? The patient is scheduled to be seen for therapy? ____x/week for ___ weeks. Please review, sign, date and return this plan of care VASILIY. I agree with and certify that the following plan of care is medically necessary. Referring Physician Date Admitting Provider: Attending Provider: Javier Rosario MD Referring Provider: *PT Outpatient Evaluation Start: 09/11/21 10:14 Freq: Status: Active Protocol: Document 09/11/21 10:14 [facility] (Rec: 09/11/21 11:05 [facility] [email or web address]) Therapy Assessment Status Assessment Status Assessment Status Evaluation Outpatient Past Medical History Gastrointestinal History Hx Gastroesophageal Reflux Disease Yes Reproductive History Hx Post Menopausal Yes Psychosocial History Hx Anxiety Yes Evaluation Information Problem Diagnosis p/o CVA and L adhesive capsulitis Additional Evaluation Detail quick dash = Subjective Information patient reports she had a Query Text:As Reported By Patient/ stroke nearly a year ago. she Family reports she has never had therapy for any wrist or hand deficits. she reports however, until recently no issues with the L shoulder. she reports the shoulder has been bothering her for nearly 2 weeks. she reports she has pain all the time in the L shoulder. she reports increased use creates increased pain in the L shoulder. she reports she had no imaging of the L shoulder. Pain Assessment Timing of Pain Assessment Timing of Pain Assessment Assessment Pain Scale Pain Scale Used Numeric (1 - 10) Self Report Pain Assessment Left Shoulder(s) Reported Pain Level 9 Pain Score Pain Score 9: Self Report Interventions Used Interventions Used By Clinicians Education,Heat,Medication,Rest Pain Relief Interventions Used By Heat,Medication Patient Upper Extremity Range of Motion General Upper Extremity Range of Motion Gross Upper Extremity Range of Motion 130 degrees R shoulder arom Comments flex 135 degrees R shoulder prom flex 45 degrees R shoulder arom ER 40 degrees R shoulder arom IR 97 degrees L shoulder arom flex with inc
--- NOTE | 2021-09-11 11:59 | OTOPEVAL ---
Thank you for referring Daphney Shah to [facility].? The patient is scheduled to be seen for therapy? ____x/week for ___ weeks. Please review, sign, date and return this plan of care VASILIY. I agree with and certify that the following plan of care is medically necessary. Referring Physician Date Admitting Provider: Attending Provider: Javier Rosario MD Referring Provider: *OT Outpatient Evaluation Start: 09/11/21 10:43 Freq: Status: Active Protocol: Document 09/11/21 10:43 [facility] (Rec: 09/11/21 11:58 [id number]) Therapy Assessment Status Assessment Status Assessment Status Evaluation Outpatient Past Medical History Gastrointestinal History Hx Gastroesophageal Reflux Disease Yes Reproductive History Hx Post Menopausal Yes Psychosocial History Hx Anxiety Yes Evaluation Information Problem Diagnosis L hand weakness Onset 09/08/21 Cause CVA Subjective Information Patient reports that she had a Query Text:As Reported By Patient/ CVA last summer and did not Family have any rehab afterwards. Patient reports memory loss and weakness in the L hand/arm . Patient reports that her doctor recommended therapy secondary to L shoulder and wrist pain. Patient reports that she isnt able to open a bottle of water or maintain grasp on anything with her L hand. Patient is wearing L wrist orthosis and states that her doctor recommended secondary to pain. Patient lives with her and is raising 4 children under the age of 13. *Quick DASH: 86.4%* Prior Level of Function Activity Level (Last 3 Months) Occupation retired Hand Dominance Right Activity of Daily Living Ability Independent Indoor/Home Mobility Independent Community Mobility Independent Stairs Ability Independent Functional Cognition (Planning, Shopping Independent , Taking Medications) Cooking Yes Cleaning Yes Laundry Yes Shopping Yes Driving Yes Pain Assessment Timing of Pain Assessment Timing of Pain Assessment Assessment Pain Scale Pain Scale Used
--- NOTE | 2021-12-26 17:22 | PCOTNOTE ---
Patient is seen for OT evaluation only. See evaluation for skills and concerns. Discharge skilled OT services. MS
== END 2021-09-11 10:32 | disposition home or self-care (01) ==
LOC: CHSPT 09:53
PROVIDERS: PCP Family Medicine; Visit Provider Family Medicine
DX: M75.02 Adhesive capsulitis of left shoulder (principal); R09.89 Other specified symptoms and signs involving the circulatory and respiratory systems; G81.94 Hemiplegia, unspecified affecting left nondominant side
CPT/HCPCS: 97161; 97165

== ENCOUNTER 2021-12-25 08:14 | Outpatient (CLI) | payer MEDICARE, SELFPAY ==
[2021-12-25 09:01] LABS: Cholesterol 284 mg/dL (0-200); HDL Direct 45 mg/dL (40-60); LDL Cholesterol Calculated 172 mg/dL (<130); Triglycerides 336 mg/dL (0-150)
== END 2021-12-25 08:15 | disposition home or self-care (01) ==
LOC: CHSLAB 08:17
PROVIDERS: PCP Family Medicine; Visit Provider Internal Medicine Cardiovascular Disease
DX: I65.22 Occlusion and stenosis of left carotid artery (principal)
CPT/HCPCS: 36415; 80061

== ENCOUNTER 2023-09-30 13:19 | Outpatient (CLI) | payer MEDICARE, SELFPAY ==
--- NOTE | ~2023-09-30 | US_ITS ---
EXAMINATION: US carotid duplex BI DATE: 09/30/2023 14:16 INDICATION: Retinal ischemia. Carotid atherosclerosis and stenosis. TECHNIQUE: Grayscale, color Doppler, and pulsed Doppler images of the cervical carotid arteries were obtained. The degree of vessel stenosis is placed in one of the following categories: normal, <50%, 5 0-69%, >=70% but less than near-occlusion, near-occlusion, or total occlusion. Note that percent sten osis relative to normal distal artery lumen diameter is indirectly measured from velocity measurement s as described by Reji, et al. Radiology 2003; 229:340-346. COMPARISON: Correlation is made with report from studies dated 11/29/2020 and 12/02/2020, images which are unavailable at this time for comparison. FINDINGS: RIGHT: The right common carotid artery (CCA) and right internal carotid artery (ICA) are both occluded with no evident internal vascular flow on color Doppler. The right external carotid artery (ECA) demonstra leeanne to and fro flow which is reversed during early systole suggesting resupply via downstream collate rals. There is antegrade flow in the right vertebral artery but with parvus and tardus waveform sugge sting a significant more proximal stenosis. LEFT: There is also occlusion of the left common carotid artery with no evident internal vascular flow on c olor Doppler. There is reversed flow in the left external carotid artery also consistent with resuppl y via downstream collaterals. There is however no diastolic flow reversal within the right external c arotid artery supplying antegrade flow with parvus and tardus waveforms in the left internal carotid artery. There are also parvus and tardus waveforms in the left vertebral artery suggesting a signific ant more proximal stenosis. IMPRESSION: 1. 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 2. Retrograde flow in the bilateral external carotid arteries which on the left resupplies the left i nternal carotid artery. 3. Patent bilateral vertebral arteries which presumably represent the primary vascular supply to the brain and potentially also via collaterals to the bilateral external carotid and left internal caroti d arteries. There are however parvus and tardus waveforms at the bilateral vertebral arteries suggest ing significant more proximal stenoses. Reviewed, dictated and finalized at location A. IMPRESSION: 1. Complete occlusion of the bilateral common carotid arteries and right graphic design intern al carotid artery. 2. Retrograde flow in the bilateral external carotid arteries which on the left resupplies the left internal carotid artery. 3. Patent bilateral vertebral arteries which presumably represent the primary v ascular supply to the brain and potentially also via collaterals to the bilater al external carotid and left internal carotid arteries. There are however parvu s and tardus waveforms at the bilateral vertebral arteries suggesting significa nt more proximal stenoses.
[2023-09-30 13:53] LABS: Basophils Absolute Auto 0.01 K/mm3 (0.00-0.10); Basophils Percent Auto 0.1 % (0.0-1.0); Eosinophils Absolute Auto 0.09 K/mm3 (0.02-0.50); Eosinophils Percent Auto 0.7 % (1.0-6.0); Hemoglobin 13.6 g/dL (11.7-13.8); Immature Granulocyte Absolute 0.07 K/mm3 (0.00-0.00); Immature Granulocyte Percent A 0.5 % (0.0-0.0); Lymphocytes Absolute Auto 1.01 K/mm3 (1.10-4.50); Lymphocytes Percent Auto 7.9 % (18.0-42.0); Mean Corpuscular HGB Conc 31.6 g/dL (32-36); Mean Corpuscular Hemoglobin 29.2 pg (27.0-31.0); Mean Corpuscular Volume 92.5 fL (78.0-102.0); Mean Platelet Volume 10.1 fl (9.2-11.8); Monocytes Absolute Auto 0.27 K/mm3 (0.10-0.90); Monocytes Percent Auto 2.1 % (2.0-11.0); Neutrophils Absolute Auto 11.38 K/mm3 (1.70-7.20); Neutrophils Percent Auto 88.7 % (50.0-70.0); Platelet Count Result 345 K/mm3 (150-420); Red Blood Count 4.65 M/mm3 (4.20-5.40); Red Cell Distribution Width 15.6 % (11.6-14.4); White Blood Count 12.8 K/mm3 (4.8-10.8)
[2023-09-30 14:44] LABS: CRP < 0.5 mg/dL (0.0-0.9)
[2023-09-30 14:53] LABS: Erythrocyte Sedimentation Rate 31 mm/hr (0-20)
== END 2023-09-30 13:20 | disposition home or self-care (01) ==
LOC: CHSIMG 13:22
PROVIDERS: PCP Family Medicine; Visit Provider Ophthalmology
DX: H35.82 Retinal ischemia (principal); H25.13 Age-related nuclear cataract, bilateral; H34.11 Central retinal artery occlusion, right eye; H40.052 Ocular hypertension, left eye; I65.23 Occlusion and stenosis of bilateral carotid arteries
CPT/HCPCS: 36415; 85025; 85652; 86140; 93880

== ENCOUNTER 2024-07-10 14:51 | Outpatient (CLI) | payer MEDICARE, SELFPAY ==
--- OUTSIDE RECORDS SUMMARY | 2024-07-10 14:55 | XMS_ITS | CONTINUITY OF CARE DOCUMENT ---
Author Name dusty montano Address Unknown Organization [facility] Office Address [address] [place] [address] [address] [place] [address] Phone [phone] Care Team Providers Care Frit Maker Name Role Phone Elias TRONCOSO, Abhijit Unavailable [phone] SHAWN WHITE MD Unavailable INSURANCE PROVIDERS Payer name Policy type / Coverage type [place] [employer] Medicaid 1 [id number] [employer] MED[employer]ARE [facility] ADV[employer]AGE O Medicare [id number]
--- OUTSIDE RECORDS SUMMARY | 2024-07-10 14:55 | XMS_ITS | Clinical Summary ---
Author Organization [facility] Address [address] [place] [address]. [place] [address] [place] [address] Care Team Providers Care Bank Compliance Officer Name Role Phone Heather Philippe MD Primary Care Provider [phone] Allergies No known active allergies Medications atorvastatin (LIPITOR) 80 MG tablet Take 1 tablet (80 mg total) by mouth nightly at bedtime. 30 tablet 09/20/2023 Active clopidogrel (PLAVIX) 75 MG tablet Take 1 tablet (75 mg total) by mouth daily. 30 tablet 09/21/2023 Active aspirin 81 MG chewable tablet Chew 1 tablet (81 mg total) by mouth daily. 21 tablet 09/20/2023 Active prednisoLONE acetate (PRED FORTE) 1 % ophthalmic suspension Place 1 drop into the left eye. 12/04/2023 Active acetaminophen (TYLENOL) 500 MG tablet Take 1 tablet (500 mg total) by mouth every 4 (four) hours as needed for Pain. Active dorzolamide-ector olol (COSOPT) 2-0.5 % Solution Place 1 drop into the left eye 2 (two) times daily. Active hydrOXYzine (VISTARIL) 25 MG capsule Take 1 capsule (25 mg total) by mouth 4 (four) times daily as needed for Itching. Active escitalopram (LEXAPRO) 10 MG tablet Take 1 tablet (10 mg total) by mouth daily. Active Active Problems Problem Noted Date Diagnosed Date Right pontine CVA (CMS/HCC HHS/HCC) 09/17/2023 Visual loss 09/16/2023 Hyperlipidemia, unspecified hyperlipidemia type 09/11/2022 Hx of TIA (transient ischemic attack) and stroke 09/11/2022 Immunizations Name Administration Dates Next Due Fluzone High Dose - >Age 65 (Prefilled Syringe) 04/11/2023 Influenza Adult (Generic) 2022,03/03/2020, 05/08/2019 Pneumococcal (Prevnar 20) 08/06/2022 Tdap (Generic) 09/08/2019 Social History Tobacco Use Types Packs/Day Years Used Date Smoking Tobacco: Every Day Cigarettes Smokeless Tobacco: Never Tobacco Cessation:Ready to Q uit: No; Counseling Given: Yes Alcohol Use Standard Drinks/Week Comments Not Currently 0 (1 standard drink = 0.6 oz pur e alcohol) [facility] Utilities Answer Date Recorded In the past 12 months has e [employer], gas, oil, or water [employer] threatened to shut off services in your home? No 09/16/2023 Humiliation, Afraid, Rape, and Kick questionnair e Answer Date Recorded Within the last year, have y ou been afraid of your partner or ex-partner? No 09/16/2023 Within the last year, have y ou been humiliated or emotionally abused in other ways by your partner or ex-partner? No Within the last year, have y ou been kicked, hit, slapped, or otherwise physically hurt by your partner or ex-partner? No 09/16/2023 Within the last year, have y ou been raped or forced to have any kind of sexual activity by your partner or ex-partner? No 09/16/2023 Overall Financial Resource Strain (CARDIA) Answe r Date Recorded How hard is it for you to pa y for the very basics like food, housing, medical care, and heating? Not hard at all 09/16/2023 PHQ-2 Answer Date Recorded Patient Health Questionnaire-2 Score 0 04/11/2023 Hunger Vital Sign Answer Date Recorded Within the past 12 months, y ou worried that your food would run out before you got the money to buy more. Never true 09/16/19 Within the past 12 months, t he food you bought just didn't last and you didn't have money to get more. Never true 09/16/2023 PRAPARE - Transportation Answer Date Re corded In the past 12 months, has l ack of transportation kept you from medical appointments or from getting medications? No 06/2023 In the past 12 months, has l ack of transportation kept you from meetings, work, or from getting things needed for daily living? No 09/16/2023 Housing Stability Vital Sign Answer Tomas e Recorded In the last 12 months, was t here a time when you were not able to pay the mortgage or rent on time? No 09/16/2023 In the last 12 months, how many places have you lived? 1 09/16/2023 In the last 12 months, was t here a time when you did not have a steady place to sleep or slept in a residential (including now)? No 09/16/2023 Comments No Sex and Gender Information Value Date Recorded Sex Assigned at Not on file Legal Sex Female 9:10 AM CDT Gender Identity Not on file Sexual Orientation Not on file Last Filed Vital Signs Vital Sign Reading Time Taken Comments Blood Pressure 100/68 03/02/2024 10:49 AM CDT Pulse 56 03/02/2024 10:32 AM CDT Temperature 36 ??C (96.8 ??F) 03/02/2024 10:15 AM CDT Respiratory Rate 16 03/02/2024 10:32 AM CDT Oxygen Saturation 97% 03/02/2024 10:32 AM CDT Inhaled Oxygen Concentration - - Weight 73.9 kg (163 lb) 03/02/2024 9:03 AM CDT Height 160 cm (5' 3 ) 03/02/2024 9:03 AM CDT Body Mass Index 28.87 03/02/2024 9:03 AM CDT Plan of Treatment Health Maintenance Due Date Last Done Comments Colorectal Cancer Screening Colonoscopy (10 Years) 1954 Hepatitis C 1972 Mammogram Screening 1994 Zoster Vaccines (1 of 2) 2004 Annual Medicare Wellness Visit 2019 Dexa Scan (General) 2019 COVID-19 Vaccine ( season) 2024 Influenza Adult (#1) 2024 04/11/2023, 2022, 03/03/2020, Additional history exists PHQ-2 (Physician [place]) 04/11/2024 04/11/2023 RSV Immunization or 60+ Years (1 - 1-dose 75+ series) 2029 DTaP, Tdap and Td Vaccines (2 - Td or Tdap) 09/07/2029 09/08/2019 Pneumococcal Vaccine: 65+ Years Completed 08/06/2022 Meningococcal B Vaccine Aged Out No l onger eligible based on patient's age to complete this topic Meningococcal Vaccine Aged Out No melisa jose eligible based on patient's age to complete this topic RSV Immunizations Under 20 Months Aged Out No longer eligible based on patient's age to complete this topic Medical Devices Implanted Type Area Social Insurance Administrator Device Identifier Shelf Expiration Date Model / Serial / Lot Intraocular Lens Implanted:Qty: 1 on 03/02/2024 by Faustino Hyatt MD at [facility] Left: Eye [employer] [id number] 06/08/2025 [id number] 0 / [id number] 1 / Insurance [place] [address] [place] [id number] Advance Directives * Full Code (Latest Code Status on File) Date Activated Date Inactivated Comments 09/16/2023 7:22 PM 09/20/2023 3:57 PM Care Teams Bank Compliance Officer Relationship Specialty [place] [id number] [address] [place] [id number] PCP - General FAMILY PRACTICE 07/24/22
[2024-07-10 15:12] LABS: Hematocrit 38.1 % (35.0-42.0); Hemoglobin 11.9 g/dL (11.7-13.8); Mean Corpuscular HGB Conc 31.2 g/dL (32-36); Mean Corpuscular Hemoglobin 30.4 pg (27.0-31.0); Mean Corpuscular Volume 97.4 fL (78.0-102.0); Mean Platelet Volume 9.5 fl (9.2-11.8); Platelet Count Result 271 K/mm3 (150-420); Red Blood Count 3.91 M/mm3 (4.20-5.40); Red Cell Distribution Width 14.5 % (11.6-14.4); White Blood Count 6.1 K/mm3 (4.8-10.8)
[2024-07-10 15:47] LABS: Alanine Aminotransferase 29 U/L (14-59); Albumin Level 3.5 g/dL (3.4-5.0); Alkaline Phosphatase 155 U/L (46-116); Anion Gap 9 mmol/L (4-12); Aspartate Amino Transferase 23 U/L (15-37); Bilirubin,Total 0.3 mg/dL (0.00-1.00); Blood Urea Nitrogen 17 mg/dL (7-18); Calcium 8.4 mg/dL (8.5-10.1); Carbon Dioxide 28 mmol/L (21-32); Chloride 102 mmol/L (98-108); Cholesterol 195 mg/dL (0-200); Creatine Kinase 63 U/L (26-192); Estimated Glomerular Filt Rate 49; Glucose 97 mg/dL (70-99); HDL Direct 44 mg/dL (40-60); LDL Cholesterol Calculated 90 mg/dL (<130); Osmolality Calculated 289 mOsm/kg (285-295); Potassium 3.9 mmol/L (3.5-5.1); Sodium 139 mmol/L (136-145); Thyroid Stimulating Hormone 0.85 uIU/mL (0.36-3.74); Total Protein 7.6 g/dL (6.4-8.2); Triglycerides 304 mg/dL (0-150)
== END 2024-07-10 14:52 | disposition home or self-care (01) ==
LOC: CHSLAB 14:52
PROVIDERS: PCP Family Medicine; Visit Provider Family Medicine
DX: I50.32 Chronic diastolic (congestive) heart failure (principal); E78.2 Mixed hyperlipidemia
CPT/HCPCS: 36415; 80053; 80061; 82550; 84443; 85027

== ENCOUNTER 2025-04-13 15:39 | Emergency (ER) | payer MEDICARE, SELFPAY ==
--- NOTE | ~2025-04-13 | CT_ITS ---
EXAMINATION: CT facial & cervical spine wo COMPARISON: None HISTORY: trauma TECHNIQUE: Axial images were obtained without IV contrast. Sagittal, coronal reconstruction images were obtained from the axial views. CT scan performed using dose optimization techniques including the following automated exposure control; adjustment of mA and/or kV; use of iterative reconstruction technique. Automatic exposure control was used to reduce radiation dose. Permanent radiation dose record is archived to PACS. FINDINGS: CT facial bones: Anterior subcutaneous soft tissue swelling with subcutaneous hemorrhage is noted. There is no retrobulbar hemorrhage identified. Minimal preseptal swelling is noted. There are nondisplaced bilateral nasal bone fractures age-indeterminate. The anterior maxillary sinus vitale and zygomatic arches are intact. The temporomandibular joints are intact. Orbital floors and medial orbits are intact. Minimal sinusitis is noted. CT cervical spine: Soft tissues are unremarkable. Bilateral subcentimeter thyroid nodules. The lung apices appear unremarkable. Grade 1 anterolisthesis of C2 on C3 and C3 on C4 and C4 on C5, no fracture is identified. Moderate loss of disc height at C5-6 and C6-7 with moderate to severe canal and foraminal stenosis. IMPRESSION: 1. Age-indeterminate fractures of the nasal bones with posttraumatic soft tissue changes. 2. No acute fracture in the cervical spine Reviewed, dictated and finalized at location P. IMPRESSION: 1. Age-indeterminate fractures of the nasal bones with posttraumatic soft tissu e changes. 2. No acute fracture in the cervical spine
--- NOTE | ~2025-04-13 | CT_ITS ---
EXAMINATION: CT brain wo [place], 04/13/2025 16:00 CDT HISTORY: trauma COMPARISON: No comparisons available. Technique: Axial images obtained of the brain without contrast. One or more of the following dose reduction techniques were used: automated exposure control, adjustment of the mA and/or kV according to patient size, use of iterative reconstruction technique. Findings: Remote right occipital infarct. Remote left cerebellar infarct. Remote right frontal infarct. Remote left small subcortical frontal infarct. No acute infarct or hemorrhage. No midline shift or mass effect. No extra-axial fluid collections Mastoid air cells unremarkable. Sinuses and orbits unremarkable. No acute fracture. Anterior subcutaneous soft tissue swelling with hemorrhage noted. Impression: 1.No acute intracranial abnormality. Reviewed, dictated and finalized at location P. Impression: 1.No acute intracranial abnormality.
[2025-04-13 15:40] VITALS: BP 107/82; PULSE 70; RESP 18; TEMP 36.5; O2SAT 100
--- NOTE | 2025-04-13 15:55 | ED.GENADULT ---
HPI - General Adult General Chief complaint: Fall Stated complaint: fall from wheelchair Time Seen by Provider: 04/13/25 15:39 History of Present Illness HPI narrative: 70-year-old female presenting to the emergency department for evaluation after having a fall from her wheelchair. Patient was heading outside in her wheelchair to have a smoke break when a blanket got caught under the wheelchair and she fell striking her head. Patient denies any loss of consciousness. Patient does have a significant hematoma to the center for forehead does have an abrasion to her nose. Patient denies any other pain or injury. Related Data Home Medications ?Medication ?Instructions ?Recorded ?Confirmed ?Last Taken ?Type aspirin 81 mg tablet,delayed 81 mg PO DAILY 12/26/20 07/17/24 Unknown History release (Adult Low Dose Aspirin) fludrocortisone 0.1 mg tablet 0.1 mg PO DAILY 12/26/20 07/17/24 Unknown History omega 0-vlw-lmd-fish oil 1,000 mg 1 cap PO DAILY 12/25/21 07/17/24 Unknown History (120 mg-180 mg) capsule (Fish Oil) Allergies Allergy/AdvReac Type Severity Reaction Status Date / Time No Known Allergies Allergy Verified 12/25/21 14:09 Review of Systems Review of Systems: All systems reviewed & are unremarkable except as noted in HPI and below PMFSH Past Medical History Medical History (Updated 04/13/25 @ 17:09 by Faraz Sarabia MD) Hypotension CVA (cerebral vascular accident) Hx of migraine headaches Arthritis Family History Family History Father Past heart attack Parkinsons disease Alzheimer disease Mother Pacemaker Social History Social History Social History: She and her are raising 5 young children. Smoking packs per day: 1.5 Smoking cigarettes per day: 30.0 Smoking status: Heavy tobacco smoker Second hand tobacco smoke exposure: No Alcohol intake: former Substance use: never Substance use type: does not use Do You Feel Safe in your Home?: Yes Lack of Transportation: No Lack of Food: Never True Current Housing: I Have Housing Concerned About Future Housing: No Difficulty Paying Gas/Electric Bills: No Difficulty Paying for Meds: No Currently Unemployed: No Education: Grade School Difficulty w/ Childcare or Family Care: YES Spiritual care concerns: No Exam Narrative: APPEARANCE: Well appearing, no pain, no distress, well-nourished. HEAD: normocephalic, head injury, facial contusion, nasal abrasion EYES: PERRLA/EOMI, conjunctivae clear. NOSE: Normal no drainage EARS:TMS clear with good light reflex. THROAT: Pharynx clear, no exudate. NECK: Supple. No adenopathy, no masses. RESPIRATORY: Airway patent, respirations nonlabored. Clear to auscultation bilaterally, no rales, rhonchi, wheezing. CARDIOVASCULAR: Regular rate and rhythm without murmurs rubs or gallops. ABDOMINAL: Soft, nontender, nondistended, normal bowel sounds MUSCULOSKELETAL: Moves all extremities. Strength/ROM intact, No edema, No calf tenderness. NEURO: Alert. Cranial nerves II through XII intact. Good gait. Good coordination SKIN: Warm, dry. Normal Color Course Vital Signs Vital signs: Vital Signs Temperature 97.7 F 04/13/25 15:40 Pulse Rate 70 04/13/25 15:40 Respiratory Rate 18 04/13/25 15:40 Blood Pressure 107/82 04/13/25 15:40 Pulse Oximetry 100 04/13/25 15:40 Oxygen Delivery Room Air 04/13/25 15:40 Temperature 97.7 F 04/13/25 15:40 Pulse Rate 65 04/13/25 16:51 Respiratory Rate 23 H 04/13/25 16:51 Blood Pressure 114/69 04/13/25 16:51 Pulse Oximetry 97 04/13/25 16:51 Oxygen Delivery Room Air 04/13/25 15:40 Medical Decision Making [facility] Narrative Medical decision making narrative: 70-year-old female presented emergency department for evaluation for head injury and facial injury after falling from her wheelchair. Patient did have a new nasal fracture but patient had no nasal septal hematomas, nares were clear bilaterally rate. No laceration requiring repair. CT head and cervical spine were negative. On re-evaluation patient states she does feel fine denies any new injuries. Differential Diagnosis Differential Diagnosis: Sub dermatome, subarachnoid hemorrhage, cervical spine fracture, nasal fracture, facial fracture Vital Signs Vital Signs: Vital Signs Temperature 97.7 F 04/13/25 15:40 Pulse Rate 70 04/13/25 15:40 Respiratory Rate 18 04/13/25 15:40 Blood Pressure 107/82 04/13/25 15:40 Pulse Oximetry 100 04/13/25 15:40 Oxygen Delivery Room Air 04/13/25 15:40 Temperature 97.7 F 04/13/25 15:40 Pulse Rate 65 04/13/25 16:51 Respiratory Rate 23 H 04/13/25 16:51 Blood Pressure 114/69 04/13/25 16:51 Pulse Oximetry 97 04/13/25 16:51 Oxygen Delivery Room Air 04/13/25 15:40 Discharge Plan Discharge Clinical Impression: Contusion of head, Closed fracture nasal bone Patient Disposition: NH [facility]/Asst Living Condition: Stable Instructions: Antibiotic Form, Nasal Fracture (ED), Head Injury (ED) Additional Instructions: CT did show concern for a nasal fracture. Have close follow-up with your primary care physician. Follow head injury guidelines. If you have any worsening symptoms then please call or return to the emergency department. Patient Language: Romansh Prescriptions: No Action hydrocodone-acetaminophen 5-325 mg Tablet 1 tablet PO Q4H PRN (Reason: Moderate Pain (4-6)) Qty: 20 0RF nicotine [Nicoderm CQ] 21 mg/24 hr Patch 24 Hour 1 patch transdermal DAILY Qty: 30 0RF hydroxyzine HCl 25 mg Tablet 25 mg PO Q8HR PRN (Reason: Anxiety) Qty: 30 0RF celecoxib [Celebrex] 100 mg Capsule 100 mg PO DAILY@0800 Qty: 30 0RF midodrine 5 mg tablet 5 mg PO TID Qty: 90 0RF Rx Instructions: do not give last dose of day after 6PM or within 4 hrs of bedtime diclofenac sodium [Voltaren Arthritis Pain] 1 % gel 4 g topical QID Qty: 100 0RF Rx Instructions: apply to single knee, ankle, foot; for foot includes sole/toes/top of foot fludrocortisone 0.1 mg tablet 0.1 mg PO DAILY aspirin [Adult Low Dose Aspirin] 81 mg tablet,delayed release (DR/EC) 81 mg PO DAILY omega 1-ums-gmo-fish oil [Fish Oil] 1,000 mg (120 mg-180 mg) capsule 1 cap PO DAILY atorvastatin 40 mg tablet 40 mg PO DAILY Qty: 90 2RF Follow-up/Referrals: Javier Rosario MD [Primary Care Provider, Internal Medicine]
--- NOTE | 2025-04-13 15:59 | PC.NURSE ---
Pt to CT scan via stretcher at this time.
[2025-04-13 16:51] VITALS: BP 114/69; PULSE 65; RESP 23; O2SAT 97
--- NOTE | 2025-04-13 17:34 | PC.NURSE ---
Genny states that there is no [facility] to take pt back. Attempted to call spouse Nick with no answer. Contacted daughter Jeanie and informed that she will be there at 1800 to picker packer pt
--- OUTSIDE RECORDS SUMMARY | 2025-04-13 17:55 | XMS_ITS | Clinical Summary ---
Author Organization [facility] Address [address] [place] [address] Care Team Providers Care Cupola Tapper Name Role Phone Heather Philippe MD Primary Care Provider [phone] Allergies No known active allergies Medications atorvastatin [...] Noted Date Diagnosed Date Right pontine CVA 09/17/2023 Visual loss 09/16/2023 Hyperlipidemia, unspecified hyperlipidemia type 09/11/2022 Hx of TIA (transient ischemic attack) and stroke 09/11/2022 Immunizations Immunization Administration Dates Next Due Fluzone High Dose [...] drink = 0.6 oz pur e alcohol) [facility] Utilities Answer Date Recorded In the past 12 months has e [employer], gas, oil, or water [employer] threatened to shut off services in your [...] money to buy more. Never true 09/16/19 24 Within the past 12 months, t he food you bought just didn't last and you didn't have money to get more. Never true 09/16/2023 PRAPARE - Transportation Answer Date Re corded In the past 12 months, has l ack of transportation kept you from medical appointments or from getting medications? No 0406/2023 In the past 12 months, has l [...] place to sleep or slept in a fci (including now)? No 09/16/2023 Comments No Sex and Gender Information Value Date Recorded Sex Assigned at Not on file Legal Sex Female 9:10 AM CDT Gender Identity Not on file Sexual Orientation Not on file Last Filed Vital Signs Vital Sign Reading Time Taken Comments Blood Pressure 100/68 03/02/2024 10:49 AM CDT Pulse 56 03/02/2024 10:32 AM CDT Temperature 36 C (96.8 F) 03/02/2024 10:15 AM CDT Respiratory Rate 16 03/02/2024 10:32 AM CDT Oxygen Saturation 97% 03/02/2024 10:32 AM CDT Inhaled Oxygen Concentration - - Weight 73.9 kg (163 lb) 03/02/2024 9:03 AM CDT Height 160 cm (5' 3) 03/02/2024 9:03 AM CDT Body Mass Index 28.87 03/02/2024 9:03 AM CDT Plan of Treatment Health Maintenance Due Date Last Done Comments Colorectal Cancer Screening Colonoscopy (10 Years) 1954 Hepatitis C 1972 Mammogram Screening 1994 Zoster Vaccines (1 of 2) 2004 Annual Medicare Wellness Visit 2019 Dexa Scan (General) 2019 PHQ-2 (Physician [place]) 06/17/2024 04/11/2023 COVID-19 Vaccine ( - season) 2025 Influenza Adult (#1) 2025 04/11/2023, 2022, 03/03/2020, Additional history exists RSV Immunization or 60+ Years (1 - 1-dose 75+ series) 2029 DTaP, Tdap and Td Vaccines (2 - Td or Tdap) 09/07/2029 09/08/2019 Pneumococcal Vaccine: 50+ Years Completed 08/06/2022 Hepatitis A Vaccines Aged Out No long er eligible based on patient's age to complete this topic Meningococcal B Vaccine Aged Out No l onger eligible based on patient's age to complete this topic Meningococcal Vaccine Aged Out No melisa jose eligible based on patient's age to complete this topic RSV Immunizations Under 20 Months Aged Out No longer eligible based on patient's age to complete this topic Medical Devices Implanted Type Area Bed Operator Device Identifier Shelf Expiration Date Model / Serial / Lot Intraocular Lens Implanted:Qty: 1 on 03/02/2024 by Faustino Hyatt MD at [facility] Left: Eye [employer] [id number] 06/08/2025 [id number] 0 / [id number] 1 / Insurance [place] [address] [place] [address] MEDICARE Advance Directives * Full Code (Latest Code Status on File) Date Activated Date Inactivated Comments 09/16/2023 7:22 PM 09/20/2023 3:57 PM Care Teams Cupola Tapper Relationship Specialty [place] [id number] [address] [place] [id number] PCP - General FAMILY PRACTICE 07/24/22
== END 2025-04-13 18:30 ==
PROVIDERS: Emergency Provider Emergency Medicine; PCP Family Medicine
DX: S00.83XA Contusion of other part of head, initial encounter (principal); S02.2XXA Fracture of nasal bones, initial encounter for closed fracture; M19.90 Unspecified osteoarthritis, unspecified site; F17.210 Nicotine dependence, cigarettes, uncomplicated; Z86.73 Personal history of transient ischemic attack (TIA), and cerebral infarction without residual deficits; V00.811A Fall from moving wheelchair (powered), initial encounter
CPT/HCPCS: 70450; 70486; 72125; 99284